=== PATIENT | female | born 1955 | race Two or more races ===

== ENCOUNTER 2018-03-26 07:00 | Day surgery (SDC) | payer OTHER ==
[~2018-03-26] VITALS: Ht 165.1 cm; Wt 68.0 kg
== END 2018-03-27 13:00 | disposition home or self-care (01) ==
LOC: CIR.AMB 07:00 → SURG 09:03 → O/R 09:03 → MEDI 09:03 → SURG 11:30 → EDSTATUS 12:00 → SURG 12:00 → O/R 20:04 → MEDI 20:04 → CIR.AMB 03-27 13:00 → MEDI 03-27 17:13 → O/R 03-27 17:13
DX: C20 Malignant neoplasm of rectum (principal)

== ENCOUNTER 2018-10-31 06:39 | Day surgery (SDC) | payer OTHER | END 2018-10-31 13:30 | disposition home or self-care (01) | LOC: AMB-ENDOS 06:39 | DX: K64.1 Second degree hemorrhoids (principal) ==

== ENCOUNTER 2020-02-19 10:30 | Day surgery (SDC) | payer OTHER | END 2020-02-19 14:40 | disposition home or self-care (01) | LOC: AMB-ENDOS 10:30 → ADM 13:00 → AMB-ENDOS 14:40 | PROVIDERS: ATTEND Colon & Rectal Surgery | DX: K62.89 Other specified diseases of anus and rectum (principal) ==

== ENCOUNTER 2021-04-21 07:22 | Day surgery (SDC) | payer OTHER | END 2021-04-21 12:10 | disposition home or self-care (01) | LOC: AMB-ENDOS 07:22 | PROVIDERS: ATTEND Colon & Rectal Surgery | DX: K62.89 Other specified diseases of anus and rectum (principal); K64.0 First degree hemorrhoids; Z20.822 Contact with and (suspected) exposure to COVID-19 ==